=== PATIENT | male | born 1960 | race Caucasian/White ===

== ENCOUNTER → 2020-02-11 | Outpatient (CLI) | payer OTHER ==
[~2020-02-11] MED LIST: LISINOPRIL5 MG PO; MULTIVITAMINS1 EAC5 PO; VITAMIN D325 MCG PO
--- NOTE | 2020-02-11 10:30 | NUR ---
INFORMED SIGNED CONSENT OBTAINED FOR CGXT WITH DR HOLGUIN. RESTING EKG NSR RH 67 BP 110/70 IN SUPINE POSITION, STANDING HR 71 BP 124/80, PT COMPLETED 9:00 OF A GIORGIO PROTOCOL WITH PT COMPLETING STAGE III AT 3.4 MPH AND A 14% GRADE. NO ARRHYTHMIAS OR ST CHANGES NOTED. PT REACHED A PEAK HR OF 145 WHICH REPRESENTS 91% OF PREDICTED MAXIMUM AND A PEAK BP OF 146/80. TEST TERMINATED DUE TO FATIGUE. LAST RECOVERY HR OF 106 BP 128/72. PT IN STABLE CONDITION, AWAITING NUCLEAR IMAGES.
== END | disposition home or self-care (01) ==
LOC: CARD 00:10
PROVIDERS: ATTEND Internal Medicine Cardiovascular Disease
DX: R06.02 Shortness of breath (principal)